=== PATIENT | female | born 1985 | race Native Hawaiian/Other Pacific Islander ===

== ENCOUNTER 2023-10-15 09:32 | Outpatient (CLI) | payer OTHER | END 2023-10-15 19:28 | disposition home or self-care (01) | LOC: MRI 09:32 | PROVIDERS: ATTEND Orthopaedic Surgery | DX: M25.562 Pain in left knee (principal); S83.242A Other tear of medial meniscus, current injury, left knee, initial encounter; M23.632 Other spontaneous disruption of medial collateral ligament of left knee; M23.612 Other spontaneous disruption of anterior cruciate ligament of left knee; Y92.89 Other specified places as the place of occurrence of the external cause ==